=== PATIENT | male | born 1995 ===

== ENCOUNTER 2023-12-29 01:32 | Emergency (ER) | payer SELFPAY ==
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
[2023-12-29 01:43] VITALS: BP 134/100; PULSE 116; RESP 20; TEMP 36.8; O2SAT 98; BMI 30.7
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
[2023-12-29] MEDS: Bacitracin Oint 0.9 GM PACKET 2 APPL TOPICAL (02:22)
[2023-12-29 02:31] VITALS: BP 134/100; PULSE 118; RESP 22; TEMP 36.9; O2SAT 98
== END 2023-12-29 03:04 | disposition home or self-care (01) ==
PROVIDERS: Emergency Provider Emergency Medicine
DX: Z04.1 Encounter for examination and observation following transport accident (principal)
CPT/HCPCS: 73130; 99283; 99284

== ENCOUNTER 2024-01-24 02:58 | Emergency (ER) | payer OTHER, SELFPAY ==
[2024-01-24 03:00] VITALS: BP 141/95; PULSE 86; RESP 18; TEMP 37.1; O2SAT 99; BMI 28.2
== END 2024-01-24 04:25 | disposition left against medical advice (07) ==
PROVIDERS: Emergency Provider Emergency Medicine; PCP Psychiatry & Neurology Neurology
DX: R07.0 Pain in throat (principal)
CPT/HCPCS: 99281

== ENCOUNTER 2024-02-02 03:41 | Emergency (ER) | payer OTHER, SELFPAY ==
--- NOTE | 2024-02-02 | ECG_ITS ---
Test Reason : CHEST PX Blood Pressure : / mmHG Vent. Rate : 077 BPM Atrial Rate : 077 BPM P-R Int : 166 ms QRS Dur : 086 ms QT Int : 354 ms P-R-T Axes : 048 036 030 degrees QTc Int : 400 ms Normal sinus rhythm Nonspecific T wave abnormality Abnormal ECG When compared with ECG of 10-JUL-2010 08:48, Non specific T wave changes noted Referred By: Generic ED Physician Electronically Signed By:YAS DOBBINS MD
--- NOTE | ~2024-02-02 | CT_ITS ---
EXAMINATION: CT HEAD WITHOUT CONTRAST CLINICAL INFORMATION: Headache. COMPARISON: None available. TECHNIQUE: Contiguous axial imaging was performed from the skull base to vertex without intravenous administration of contrast. This CT examination was performed using dose optimization techniques as appropriate, variously including the following: *Automated exposure control *Adjustment of mA and/or kV according to patient size (this includes techniques or standardized protocols for targeted exams where dose is matched to indication/reason for exam; i.e. extremities or head) *Use of iterative reconstruction technique DLP: 695 mGy-cm FINDINGS: The lateral, third and fourth ventricles are normally outlined. The cortical sulci and basal cisterns are normally outlined as well. There is no acute territorial defect, hemorrhage or midline shift. The extra-axial spaces are unremarkable. Calvarium: Intact. Maxillofacial sinuses and mastoids: There is a right frontal sinus opacity. There is also mucosal focal thickening and opacities within the ethmoid and right maxillary sinus. CT/CT head/brain wo IV con IMPRESSION: 1. No acute intracranial abnormality. 2. Sinus disease as described.
--- NOTE | ~2024-02-02 | XR_ITS ---
EXAMINATION: XR CHEST CLINICAL INFORMATION: Chest pain. COMPARISON: None available. TECHNIQUE: Frontal view of the chest was obtained. FINDINGS: No significant abnormality is noted involving the heart, lungs, mediastinum, bony thorax or soft tissues. XR/XR chest 1V IMPRESSION: Unremarkable examination.
[2024-02-02 03:51] VITALS: BP 149/92; PULSE 90; O2SAT 96; BMI 15.2
[2024-02-02 03:58] VITALS: BP 114/82; PULSE 72; RESP 17; TEMP 36.6; O2SAT 100
[2024-02-02 04:09] LABS: Hematocrit 44.5 % (42.0-52.0); Hemoglobin 15.4 g/dl (14.0-18.0); Mean Corpuscular HGB Conc 34.6 g/dl (31.0-36.0); Mean Corpuscular Hemoglobin 30.2 pg (27.0-33.0); Mean Corpuscular Volume 87.3 fL (80.0-98.0); Mean Platelet Volume 10.6 fL (9.4-12.4); Platelet Count 203 X10*3/uL (160-400); Red Cell Distribution Width 11.9 % (11.0-16.0); White Blood Count 6.7 X10*3/uL (4.8-10.8)
[2024-02-02 04:26] LABS: Alanine Aminotransferase 122 U/L (0-40); Albumin Level 4.2 g/dL (3.5-5.0); Alkaline Phosphatase 73 U/L (39-117); Anion Gap 15 (12-20); Aspartate Amino Transferase 53 U/L (5-37); Bilirubin Total 0.3 mg/dL (0.0-1.0); Blood Urea Nitrogen 8 mg/dL (9-16); Calcium 9.4 mg/dL (8.4-10.2); Carbon Dioxide 21 mmol/L (22-29); Chloride 111 mmol/L (96-108); Creatinine Clr Calc Pharmacy 88.7; Estimated Glomerular Filt Rate > 60; Ethanol 77 mg/dL; Glucose Random 135 mg/dL (60-115); Potassium 4.2 mmol/L (3.3-5.1); Sodium 143 mmol/L (135-145)
[2024-02-02 04:41] LABS: Troponin-I High Sensitivity < 2.7 ng/L (<3.5-35.0)
[2024-02-02] MEDS: Magnesium Hydrox/Alum Hydrox 30 ML ORAL.SUSP PO (05:42)
[2024-02-02] MEDS: 0.9 % Sodium Chloride 1,000 ML 999 ML IV (05:43)
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
[2024-02-02 06:04] VITALS: BP 110/64; PULSE 65; RESP 16; O2SAT 100
[2024-02-02 06:13] LABS: Troponin-I High Sensitivity < 2.7 ng/L (<3.5-35.0)
[2024-02-02 06:35] VITALS: BP 110/64; PULSE 65; RESP 17; TEMP 36.1; O2SAT 100
== END 2024-02-02 06:49 | disposition home or self-care (01) ==
PROVIDERS: Emergency Provider Emergency Medicine Emergency Medical Services
DX: R55 Syncope and collapse (principal); R51.9 Headache, unspecified; F10.90 Alcohol use, unspecified, uncomplicated; Y90.3 Blood alcohol level of 60-79 mg/100 ml; E11.9 Type 2 diabetes mellitus without complications; I10 Essential (primary) hypertension; E78.5 Hyperlipidemia, unspecified
CPT/HCPCS: 36415; 70450; 71045; 80053; 80307; 84484; 85027; 93005; 99284; 99285

== ENCOUNTER → 2024-02-02 03:50 | Outpatient (BNV) | payer OTHER, SELFPAY | PROVIDERS: Emergency Provider Emergency Medicine Emergency Medical Services; Visit Provider Internal Medicine Cardiovascular Disease | DX: R07.9 Chest pain, unspecified (principal) | CPT/HCPCS: 93010 ==

== ENCOUNTER 2024-02-29 13:34 | Emergency (ER) | payer OTHER, SELFPAY ==
[2024-02-29 13:38] VITALS: BP 142/95; PULSE 88; RESP 18; TEMP 36.1; O2SAT 98; BMI 29.8
--- NOTE | 2024-02-29 13:41 | ED_ITS ---
HPI - Dental/Oral General Chief complaint: Dental/Oral Stated complaint: dental pain Time Seen by Provider: 02/29/24 13:41 Source: patient Mode of arrival: ambulatory Limitations: no limitations History of Present Illness ED Provider: Alek Albert PA-C HPI Narrative: 28 yo male with history of poor dentition presents to the ER for evaluation of right upper molar pain for the last 3 days. Patient reports he has ?2 holes? in his upper 2 molars on the right side. He has been taking [id number] Motrin and Tylenol with minimal relief in the pain. He reports the pain is 10/10. He has pain with opening his mouth, the pain radiates to the right ear. He denies any facial swelling, neck swelling. He does not have a dentist but called a local family dentist and has an appointment on Saturday. Complaint: tooth pain Location: Tooth # (1 & 2) Onset (ago): day(s) Duration: worsening Severity: severe Severity scale (1-10): 10 Relieving factors: nothing Exacerbating factors: chewing Context: poor dental care Associated symptoms: gum swelling and ear pain Treatment prior to arrival: oral analgesic Related Data Previous Rx's ?Medication ?Instructions ?Recorded amoxicillin 875 mg-potassium 1 tab PO BID #20 tabs 02/29/24 clavulanate 125 mg tablet chlorhexidine gluconate 0.12 % 15 ml buccal BID #120 mL 02/29/24 mouthwash (Paroex Oral Rinse) ibuprofen 800 mg tablet 800 mg PO Q8H PRN pain #20 tabs 02/29/24 oxycodone 5 mg tablet 5 mg PO Q8H PRN severe pain (scale 02/29/24 score 7-10) #6 tabs Allergies Allergy/AdvReac Type Severity Reaction Status Date / Time No Known Allergies Allergy Verified 02/29/24 13:43 Review of Systems Review of Systems: Yes all other systems are reviewed and are negative PMFSH Social History Social History Alcohol intake: current Advance Directives: No Advance Directives Information Provided: Yes Physical Exam Vital Signs: Vital Signs: Last Vital Signs Temp 96.9 F 02/29/24 13:45 Pulse 88 02/29/24 13:45 Resp 18 02/29/24 13:45 BP 142/95 H 02/29/24 13:45 Pulse Ox 98 02/29/24 13:45 O2 Del Method Room Air 02/29/24 13:45 BMI result Body Mass Index 29.8 Const: General: cooperative, healthy appearing, no acute distress and well developed Nutritional Appearance: average body habitus and well nourished Limitations: no limitations HEENT: Head: Yes normal to inspection, Yes normocephalic and Yes atraumatic Ears: hearing grossly normal bilaterally, external ears normal and TM's normal bilaterally General nose exam: Normal external nose present Face and sinus: Yes normal facial exam and Yes face symmetric Mouth: Normal oral and palatal mucosa present, lip normal, tongue normal and moist mucous membranes Teeth and gingiva: abnormal tooth and associated gingiva upper right second molar tender, with associated gingival edema and enamel fractured; without associated gingival fluctuance and poor dentition Throat: Yes posterior oropharynx normal, Yes tonsils normal and Yes uvula midline Eyes: General: appearance normal, both eyes and all related structures Neck: Neck: Yes normal visual inspection Chest: Chest palpation & inspection: normal inspection of the chest Resp: Effort & Inspection: normal respiratory effort and able to speak in complete sentences Neuro: General: gait normal Cognition (Neuro): normal cognition Extrem: General: Yes normal to inspection Medical Decision Making Medical Decision Making MDM Narrative: 28-year-old male presenting to the ER for evaluation right upper dental pain for the last 3 days. On examination he has no significant facial swelling. No palpable abscess but he does have poor dentition with multiple caries in the affected teeth. They are tender to palpation with associated gingival tenderness. No trismus. Will prescribe oral antibiotics, pain control. No need for emergent imaging today. He has an appointment with dentist on Saturday. At this point he is stable for discharge home with close outpatient follow-up, return precautions were discussed Differential Diagnosis Differential Diagnoses: The differential diagnosis associated with the presentation includes Dental decay, toothache, dental abscess, no evidence of Bolivar's angina External Record Review External record reviewed: Prior outpatient labs Tests considered The following testing was considered but not selected: Considered CT of the facial bones however no overt abscess of significant dental abscess today Prescription Management I considered prescription management with: Pain Medication and Antibiotic Social Determinants Patient?s care significantly limited by Social Determinants of Health including: Other Social Determinant of Health (No dental care) Critical Care Time Critical Care Time Critical Care Time: No Discharge Plan Discharge Clinical Impression: Dental decay, Toothache Patient Disposition: Home, Self-Care Instructions: Toothache (ED) Additional Instructions: Take the prescribed antibiotics as directed, complete the entire course and do not miss any doses Take the prescribed ibuprofen as directed - take it with food Add tylenol 1000 mg every 6-8 hours around the clock Take the prescribed oxycodone for severe pain only, do not drive after taking this medication. Follow up with your dentist on Saturday as scheduled If you develop new or worsening symptoms call 911 or come back to the ER for further evaluation. Prescriptions: New oxycodone 5 mg tablet 5 mg PO Q8H PRN (Reason: severe pain (scale score 7-10)) Qty: 6 0RF Rx Instructions: Partial Fill upon patient request. ibuprofen 800 mg tablet 800 mg PO Q8H PRN (Reason: pain) Qty: 20 0RF amoxicillin-pot clavulanate 875-125 mg tablet 1 tab PO BID Qty: 20 0RF chlorhexidine gluconate [Paroex Oral Rinse] 0.12 % mouthwash 15 ml buccal BID Qty: 120 0RF Interventions: ED Discharge Assessment Last Done: 02/29/24 13:45 Discharge Date/Time: 02/29/24 13:49 Print Language: Azerbaijani
[2024-02-29 13:45] VITALS: BP 142/95; PULSE 88; RESP 18; TEMP 36.1; O2SAT 98
== END 2024-02-29 13:49 | disposition home or self-care (01) ==
LOC: HO.ED 13:46
PROVIDERS: Emergency Provider Emergency Medicine Emergency Medical Services
DX: K02.9 Dental caries, unspecified (principal); K08.89 Other specified disorders of teeth and supporting structures
CPT/HCPCS: 99282; 99283

== ENCOUNTER 2024-06-14 07:27 | Emergency (ER) | payer SELFPAY ==
[2024-06-14 07:36] VITALS: BP 180/86; PULSE 136; O2SAT 95
[2024-06-14 07:43] VITALS: BP 102/68; PULSE 112; RESP 18; TEMP 36.6; O2SAT 95; BMI 29.4
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
[2024-06-14 09:26] VITALS: BP 132/74; PULSE 91; RESP 16; TEMP 36.6; O2SAT 96
--- NOTE | 2024-06-14 09:27 | PC.NURSE ---
PT WAS RESTING IN NO ACUTE DISRESS, HE STATES LEG IS SORE BUT IS TOLERATING AMBULATION WITHOUT DIFFICULTY. HE WAS ASSESSED BY THE PROVIDER AND PLAN IS FOR DISCHARGE HOME
== END 2024-06-14 09:29 | disposition home or self-care (01) ==
PROVIDERS: Emergency Provider Emergency Medicine Emergency Medical Services
DX: F10.121 Alcohol abuse with intoxication delirium (principal); R00.0 Tachycardia, unspecified; Y90.9 Presence of alcohol in blood, level not specified; F33.1 Major depressive disorder, recurrent, moderate; F17.210 Nicotine dependence, cigarettes, uncomplicated; Z79.899 Other long term (current) drug therapy
CPT/HCPCS: 99282; 99283